=== PATIENT | female | born 2000 | race American Indian/Alaskan Native ===

== ENCOUNTER 2020-03-18 13:57 | Emergency (ER) | payer SELFPAY ==
[2020-03-18 14:10] VITALS: BP 124/77
--- NOTE | 2020-03-18 14:17 | Event Note ---
ED Screening Note Date of service: 03/18/20 Time: 14:13 ED Screening Note: 20 y/o black female comes in reporting that she fell from a [employer] and reports that she had LOC. When she woke she asked her friends to take her to the hospital. Patient comes in on the phone and refuses to left staff triage her got up and left the hospital. This initial assessment/diagnostic orders/clinical plan/treatment(s) is/are subject to change based on patients health status, clinical progression and re- assessment by fellow clinical providers in the ED. Further treatment and workup at subsequent clinical providers discretion. Patient/guardian urged not to elope from the ED as their condition may be serious if not clinically assessed and managed. Initial orders include:
== END 2020-03-18 14:10 | disposition left against medical advice (07) ==
LOC: ED 13:57
DX: R51.9 Headache, unspecified (principal); Z53.21 Procedure and treatment not carried out due to patient leaving prior to being seen by health care provider

== ENCOUNTER 2020-07-25 00:01 | Emergency (ER) | payer BC ==
--- NOTE | 2020-07-25 00:24 | Emergency Department Report ---
ED Headache HPI - General Stated Complaint: MIGRAINE Source: patient Exam Limitations: no limitations - History of Present Illness Initial Comments: Patient is a nulliparous 21-year-old female with a history of chronic migraine headache who presents to the ED with complaint of acute exacerbation of her chronic migraine headaches characterized by severe right retro-orbital and frontal headache for the last 3 days. Patient states that she has been taking tubw-fmz-fvdtxmc Excedrin migraine headache medications with no relief. Patient states that the pain is intermittent but persistent with photophobia and nausea. Patient states that the pain is typical of her chronic migraine headaches which usually resolves with Excedrin or cfmr-qqb-kaukuqs medications but this time did not. Patient denies vomiting, fever, chills, cough, nasal and sinus congestion, sore throat, dizziness, syncope, seizures, chest pain or shortness of breath, traumatic injury, vision changes, neck pain, facial numbness and tingling, numbness and tingling or weakness of upper and lower extremities bilaterally or traumatic injury. Timing/Duration: waxing and waning, other (3 DAYS) Quality: severe, pressure, sharp, throbbing Head Injury Location: frontal (right frontal and retroorbital) Recent Head Trauma: no recent headache/trauma, chronic headaches Modifying Factors: improves with: medication Associated Symptoms: denies symptoms, facial pain (right frontal retro-orbital area), sinus infection. denies: confusion, fatigue, fever/chills, flushing, nausea/vomiting, nasal congestion, nasal drainage, numbness in legs/feet, seizures, stiff neck, vision changes, weakness Allergies/Adverse Reactions: Allergies No Known Allergies Allergy (Verified 07/25/20 00:21) Home Medications: Ambulatory Orders Amoxicillin/Potassium Clav [Augmentin 875-125 Tablet] 1 each PO Q12H #20 tablet 07/25/20 Butalb/Acetamin/Caff 50-325-40 [Fioricet 50-325-40] 1 - 2 tab PO Q6HR PRN #15 tab 07/25/20 Ketorolac [Toradol] 10 mg PO Q8H PRN #20 tablet 07/25/20 Ondansetron [Zofran Odt] 4 mg PO Q6HR PRN #15 tab.rapdis 07/25/20 ED Review of Systems ROS: Stated complaint: MIGRAINE Other details as noted in HPI Constitutional: denies: chills, fever Eyes: denies: eye pain, eye discharge, vision change ENT: denies: ear pain, throat pain Respiratory: denies: cough, shortness of breath, wheezing Cardiovascular: denies: chest pain, palpitations Endocrine: no symptoms reported Gastrointestinal: denies: abdominal pain, nausea, diarrhea Genitourinary: denies: urgency, dysuria, discharge Musculoskeletal: denies: back pain, joint swelling, arthralgia Skin: denies: rash, lesions Neurological: headache. denies: weakness, paresthesias Psychiatric: denies: anxiety, depression Hematological/Lymphatic: denies: easy bleeding, easy bruising ED Past Medical Hx - Past Medical History Hx Headaches / Migraines: Yes Additional medical history: ADHD - Medications Home Medications: Home Medications Medication Instructions Recorded Confirmed Last Taken Type Amoxicillin/Potassium Clav 1 each PO Q12H #20 tablet 07/25/20 Unknown Rx [Augmentin 875-125 Tablet] Butalb/Acetamin/Caff 50-325-40 1 - 2 tab PO Q6HR PRN #15 tab 07/25/20 Unknown Rx [Fioricet 50-325-40] Ketorolac [Toradol] 10 mg PO Q8H PRN #20 tablet 07/25/20 Unknown Rx Ondansetron [Zofran Odt] 4 mg PO Q6HR PRN #15 tab.rapdis 07/25/20 Unknown Rx ED Physical Exam - General General appearance: alert, in no apparent distress - Head Head exam: Present: atraumatic, normocephalic, normal inspection - Eye Eye exam: Present: normal appearance, PERRL, EOMI Pupils: Present: normal accommodation - ENT ENT exam: Present: normal exam, normal orophraynx, mucous membranes moist, TM's normal bilaterally, normal external ear exam, other (Palpable right frontal tenderness) - Neck Neck exam: Present: normal inspection, full ROM - Respiratory Respiratory exam: Present: normal lung sounds bilaterally. Absent: respiratory distress, wheezes, rales, rhonchi, stridor, chest wall tenderness, accessory muscle use, prolonged expiratory - Cardiovascular Cardiovascular Exam: Present: regular rate, normal rhythm, normal heart sounds. Absent: systolic murmur, diastolic murmur, rubs, gallop - GI/Abdominal GI/Abdominal exam: Present: soft, normal bowel sounds. Absent: tenderness, guarding, rebound, hyperactive bowel sounds, hypoactive bowel sounds, organomegaly, mass - Extremities Exam Extremities exam: Present: normal inspection, full ROM, normal capillary refill - Back Exam Back exam: Present: normal inspection, full ROM. Absent: tenderness, CVA tenderness (R), CVA tenderness (L), muscle spasm, paraspinal tenderness, vertebral tenderness - Neurological Exam Neurological exam: Present: alert, oriented X3, CN II-XII intact, normal gait, reflexes normal - Psychiatric Psychiatric exam: Present: normal affect, normal mood - Skin Skin exam: Present: warm, dry, intact, normal color. Absent: rash ED Medical Decision Making - Medical Decision Making This is a nulliparous 21-year-old female with a history of chronic migraine headache who presents to the ED with complaint of acute exacerbation of her chronic migraine headaches characterized by severe right retro-orbital and frontal headache for the last 3 days. Patient states that she has been taking xgzd-teg-liatvuq Excedrin migraine headache medications with no relief. Patient states that the pain is intermittent but persistent with photophobia and nausea. Patient states that the pain is typical of her chronic migraine headaches which usually resolves with Excedrin or jazu-dbz-ejtwpsu medications but this time did not. In the ED, patient is alert and oriented x3 and is not in distress with normal vital signs. Patient states that at the moment the headache is resolved but was present prior to arrival in the ED and she decided come to the ED for evaluation. Based on the history and physical exam findings, the patient symptoms may be exacerbated by frontal sinusitis. Patient was therefore discharged home on pain medications and antibiotics for suspected frontal sinusitis. Patient is hemodynamically stable, not photophobic has not had any nausea or vomiting and states that her headaches are typical of chronic migraine headache presentations and not the worst headache of her life. Patient was therefore discharged home on medications and advised to follow-up with her primary care physician in 3 to 5 days for reevaluation. Patient was also advised to return to the ED immediately if symptoms get worse. - Differential Diagnosis Sinusitis; migraine headache; cluster headache; tension headache Critical care attestation.: If time is entered above; I have spent that time in minutes in the direct care of this critically ill patient, excluding procedure time. ED Disposition Clinical Impression: Acute non-recurrent frontal sinusitis, Sinus headache Migraine headache without aura Qualifiers: Status migrainosus presence: without status migrainosus Intractability: not intractable Qualified Code(s): G43.009 - Migraine without aura, not intractable, without status migrainosus Disposition: TO HOME OR SELFCARE Is pt being admited?: No Does the pt Need Aspirin: No Condition: Stable Instructions: Sinusitis, Adult, Jsvd-th-Tgsp, Sinus Headache, Jgte-vp-Pdtp, Migraine Headache, Svev-ak-Dhxk Additional Instructions: Take medication with food, drink plenty of fluids and follow-up with your primary care physician in 7 to 10 days for reevaluation. Return to the ED immediately if symptoms get worse. Prescriptions: Amoxicillin/Potassium Clav [Augmentin 875-125 Tablet] 1 each PO Q12H #20 tablet Butalb/Acetamin/Caff 50-325-40 [Fioricet 50-325-40] 1 - 2 tab PO Q6HR PRN #15 tab PRN Reason: Headache Ketorolac [Toradol] 10 mg PO Q8H PRN #20 tablet PRN Reason: Pain Ondansetron [Zofran Odt] 4 mg PO Q6HR PRN #15 tab.rapdis PRN Reason: Nausea Referrals: [facility] [Provider Group] - 7-10 days Time of Disposition: 01:03 Print Language: GABONESE
[2020-07-25 00:27] VITALS: BP 99/43
== END 2020-07-25 01:02 | disposition home or self-care (01) ==
LOC: ED 00:01
DX: J01.10 Acute frontal sinusitis, unspecified (principal); G43.909 Migraine, unspecified, not intractable, without status migrainosus; F90.9 Attention-deficit hyperactivity disorder, unspecified type; Z79.899 Other long term (current) drug therapy
CPT/HCPCS: 99281

== ENCOUNTER 2021-01-02 16:18 | Emergency (ER) | payer BC ==
[2021-01-02 17:14] VITALS: BP 124/88
--- NOTE | 2021-01-02 17:14 | Event Note ---
ED Screening Note Date of service: 01/02/21 Time: 17:12 ED Screening Note: 20-year-old female patient (, six and a half weeks gestation by dates) presents to the emergency department with complaints of abdominal pain and vaginal bleeding starting yesterday. States pain is localized to the right lower quadrant. Patient used three pads/tampons last night, none today. Patient is not currently under the care of an balance wheel screw hole tapper. She has not undergone an ultrasound during this . Also endorses decreased appetite and weight loss over the course of her . General: Awake, appropriately interactive. Anxious. Neck: Supple. Full range of motion intact. Cardiovascular: Normal peripheral perfusion. Pulmonary: No respiratory distress. Patient is speaking normally without use of accessory muscles. Skin: No apparent rashes or lesions. Neurological: No facial asymmetry. Speech is clear. Follows commands. Patient is alert and oriented. Musculoskeletal: Moves all four extremities spontaneously with normal range of motion. Psych: Cooperative. Anxious. I have greeted and performed a focused rapid initial assessment of this patient. A comprehensive ED assessment and evaluation of the patient, analysis of all test results, and completion of the medical decision-making process will be conducted by additional ED providers. This initial assessment/diagnostic orders/clinical plan/treatment(s) is/are subject to change based on patients health status, clinical progression and re-assessment. Further treatment and workup at subsequent clinical provider's discretion. Patient/guardian urged not to elope from the ED as their condition may be serious if not clinically assessed and managed.
[2021-01-02 18:49] LABS: Amorphous Crystals,Urine Few; Bilirubin,Urine NEG (Negative); Blood,Urine NEG (Negative); Color,Urine Yellow (Yellow); Mucus,Urine FEW /HPF; Protein,Urine <15 mg/dL mg/dL (Negative)
[2021-01-02 19:20] LABS: Alanine Aminotransferase 11 units/L (7-56); Albumin 4.5 g/dL (3.9-5); Blood Urea Nitrogen 8 mg/dL (7-17); Calcium 9.1 mg/dL (8.4-10.2); Hemolysis Index 12
[2021-01-02 19:22] LABS: Basophils # (Auto) 0.1 K/mm3 (0.0-0.1); Basophils % (Auto) 0.7 % (0.0-1.8); Eosinophils # (Auto) 0.1 K/mm3 (0.0-0.4); Eosinophils % (Auto) 0.7 % (0.0-4.3); Hematocrit 40.9 % (30.3-42.9); Hemoglobin 13.9 gm/dl (10.1-14.3); Lymphocytes # (Auto) 2.3 K/mm3 (1.2-5.4); Lymphocytes % (Auto) 21.2 % (13.4-35.0); Mean Corpuscular HGB Conc 34 % (30-34); Mean Corpuscular Volume 88 fl (79-97); Monocytes # (Auto) 0.5 K/mm3 (0.0-0.8); Monocytes % (Auto) 4.8 % (0.0-7.3); Platelet Count 272 K/mm3 (140-440); Red Blood Count 4.65 M/mm3 (3.65-5.03); Red Cell Distribution Width 12.5 % (13.2-15.2)
[2021-01-02 19:29] LABS: BUN/Creatinine Ratio 11
--- NOTE | 2021-01-02 21:28 | Emergency Department Report ---
ED Female HPI - General Chief complaint: Abdominal Pain Stated complaint: CHEST PAIN, HEADACHE, DIZZY SPELLS, BLEEDING Time Seen by Provider: 01/02/21 21:09 Source: patient Mode of arrival: Ambulatory Limitations: No Limitations - History of Present Illness Initial comments: 20-year-old female with a past medical history of ADHD, dyslexia, borderline personality disorder presents to the ER today with complaints of low abdominal pain and vaginal bleeding. Patient states that she took a home test yesterday and it was positive. She states her last menstrual cycle was November 16, 2020. She states that this was a surprise as is not unusual for her to have light periods. She states the reason she took a test was because her fried told her that her breast looked larger and so she took a test and it was positive. She states that around 5 AM this morning she started having vaginal bleeding to the point where she had to change about 2-3 pads. She states that currently the bleeding has since stopped. She did admit that last night she had sexual intercourse around 11 PM but she states that it was not rough. In addition to the bleeding she is also having lower abdominal cramping and clear discharge with a foul odor. She is G1, P0 Ab0. She reports no other symptoms at this time. MD Complaint: vaginal bleeding, other () -: Sudden, This morning - Related Data Previous Rx's Medication Instructions Recorded Last Taken Type Amoxicillin/Potassium Clav 1 each PO Q12H #20 tablet 07/25/20 Unknown Rx [Augmentin 875-125 Tablet] Butalb/Acetamin/Caff 50-325-40 1 - 2 tab PO Q6HR PRN #15 tab 07/25/20 Unknown Rx [Fioricet 50-325-40] Ketorolac [Toradol] 10 mg PO Q8H PRN #20 tablet 07/25/20 Unknown Rx Ondansetron [Zofran Odt] 4 mg PO Q6HR PRN #15 tab.rapdis 07/25/20 Unknown Rx metroNIDAZOLE [Flagyl] 500 mg PO Q12HR #14 tab 01/02/21 Unknown Rx Allergies Allergy/AdvReac Type Severity Reaction Status Date / Time No Known Allergies Allergy Verified 01/02/21 17:08 ED Review of Systems ROS: Stated complaint: CHEST PAIN, HEADACHE, DIZZY SPELLS, BLEEDING Other details as noted in HPI Comment: All other systems reviewed and negative Constitutional: denies: chills, fever ENT: denies: ear pain, throat pain Respiratory: denies: cough, shortness of breath, wheezing Cardiovascular: denies: chest pain, palpitations Gastrointestinal: abdominal pain Genitourinary: discharge, other (Abnormal bleeding). denies: urgency, dysuria, frequency, hematuria, abnormal menses, dyspareunia Musculoskeletal: denies: back pain, joint swelling, arthralgia, myalgia Skin: denies: rash, lesions, change in color, change in hair/nails, pruritus Neurological: denies: headache, weakness, numbness, paresthesias, confusion, abnormal gait, vertigo Psychiatric: denies: anxiety, depression, auditory hallucinations, visual hallucinations, homicidal thoughts, suicidal thoughts Hematological/Lymphatic: denies: easy bleeding, easy bruising ED Past Medical Hx - Past Medical History Hx Headaches / Migraines: Yes Hx Psychiatric Treatment: Yes (ADHD/DSYLEXIC/ BORDERLINE PERSONALITY/ SHIZCHOPHERNIA) Additional medical history: ADHD - Social History Smoking Status: Never Smoker Substance Use Type: None - Medications Home Medications: Home Medications Medication Instructions Recorded Confirmed Last Taken Type Amoxicillin/Potassium Clav 1 each PO Q12H #20 tablet 07/25/20 Unknown Rx [Augmentin 875-125 Tablet] Butalb/Acetamin/Caff 50-325-40 1 - 2 tab PO Q6HR PRN #15 tab 07/25/20 Unknown Rx [Fioricet 50-325-40] Ketorolac [Toradol] 10 mg PO Q8H PRN #20 tablet 07/25/20 Unknown Rx Ondansetron [Zofran Odt] 4 mg PO Q6HR PRN #15 tab.rapdis 07/25/20 Unknown Rx metroNIDAZOLE [Flagyl] 500 mg PO Q12HR #14 tab 01/02/21 Unknown Rx ED Physical Exam - General Limitations: No Limitations General appearance: alert, in no apparent distress - Head Head exam: Present: atraumatic, normocephalic, normal inspection - Eye Eye exam: Present: normal appearance, PERRL, EOMI Pupils: Present: normal accommodation - Respiratory Respiratory exam: Present: normal lung sounds bilaterally. Absent: respiratory distress, wheezes, rales, rhonchi - Cardiovascular Cardiovascular Exam: Present: regular rate, normal rhythm, normal heart sounds - GI/Abdominal GI/Abdominal exam: Present: soft, tenderness (Mild diffuse lower abdominal tenderness without guarding or rebound or rigidity). Absent: distended, guarding, rebound - External exam: Present: normal external exam, other (Shot Polisher present at bedside) Speculum exam: Present: vaginal discharge (Small amount of white thin discharge). Absent: cervical discharge, vaginal bleeding, foreign body, tissue, laceration Bi-manual exam: Present: adnexal tenderness (Mild left adnexal tenderness), other (Cervical os closed) - Neurological Exam Neurological exam: Present: alert, oriented X3, CN II-XII intact, normal gait ED Course Vital Signs 01/02/21 01/03/21 17:09 01:30 Temperature 98.5 F Pulse Rate 88 90 Respiratory 24 17 Rate Blood Pressure 124/88 [Right] O2 Sat by Pulse 100 99 Oximetry ED Medical Decision Making - Lab Data Result diagrams: 01/02/21 18:30 01/02/21 18:30 - Radiology Data Radiology results: report reviewed Patient: FANNY VARGAS MR#: [id number] : 2000 A cct:[id number] Age/Sex: 20 / F ADM Date: 01/02/21 Loc: ED Attending Dr: Ordering Physician: CATHY MURO Date of Service: 01/02/21 Procedure(s): US OB transvaginal Accession Number(s): [id number] cc: CATHY MURO ULTRASOUND OBSTETRIC INDICATION / CLINICAL INFORMATION: abd pain/vag bleeding/[id number]. Clinical Gestational Age (GA) in weeks, days: 6, 1 TECHNIQUE: Transvaginal. COMPARISON: None available. FINDINGS: GESTATIONAL SAC: Well-defined oval shape and intrauterine in location. Gestational sac measures 9.1 mm corresponding to a 5 week 5 day gestation. YOLK SAC: No significant abnormality. EMBRYO/FETUS: No pole is identified with this time. ADNEXA: No significant abnormality. FREE FLUID: None. ADDITIONAL FINDINGS: None. IMPRESSION: 1. Single, living intrauterine with estimated sonographic age of 5, 5 weeks, days. Yolk sac is seen. A pole was not identified. Signer Name: Farshad Flores MD Signed: 01/02/2021 10:28 PM Workstation Name: [id number] Transcribed By: SS Dictated By: Farshad Flores MD Electronically Authenticated By: Farshad Flores MD Signed Date/Time: 01/02/212227 DD/ 25 TD/TT: Critical care attestation.: If time is entered above; I have spent that time in minutes in the direct care of this critically ill patient, excluding procedure time. ED Disposition Clinical Impression: Threatened miscarriage in early , Bacterial vaginosis in Disposition: DC-01 TO HOME OR SELFCARE Is pt being admited?: No Does the pt Need Aspirin: No Condition: Stable Instructions: Bacterial Vaginosis, Fsqt-xx-Vlnc, Threatened Miscarriage, Guma-ug-Ccgx, Bacterial Vaginosis (ED), Abdominal Pain (ED) Additional Instructions: Take the flagyl as prescribed. You can take tylenol as needed for pain. I r ecommend no sex and or strenuous activity until follow-up with [facility]. Return to the ER if your symptoms changes or worsens in any way. Prescriptions: metroNIDAZOLE [Flagyl] 500 mg PO Q12HR #14 tab Referrals: PRIMARY CARE, [Primary Care Provider] - 3-5 Days [facility] [Provider Group] - 3-5 Days [facility] [Provider Group] - 3-5 Days Forms: STI Treatment and Prevention Time of Disposition: 23:10
[2021-01-02] MEDS ORDERED: LIDOCAINE-MPF (1%) 10 MG/1 ML VIAL 5 ML INFILTRATI ONE (22:26)
[2021-01-02] MEDS ORDERED: AZITHROMYCIN 250 MG TAB PO ONE (22:26)
--- NOTE | 2021-01-02 22:32 | Ultrasound Report ---
ULTRASOUND OBSTETRIC INDICATION / CLINICAL INFORMATION: abd pain/vag bleeding/[id number]. Clinical Gestational Age (GA) in weeks, days: 6, 1 TECHNIQUE: Transvaginal. COMPARISON: None available. FINDINGS: GESTATIONAL SAC: Well-defined oval shape and intrauterine in location. Gestational sac measures 9.1 m m corresponding to a 5 week 5 day gestation. YOLK SAC: No significant abnormality. EMBRYO/FETUS: No pole is identified with this time. ADNEXA: No significant abnormality. FREE FLUID: None. ADDITIONAL FINDINGS: None. IMPRESSION: 1. Single, living intrauterine with estimated sonographic age of 5, 5 weeks, days. Yolk sa c is seen. A pole was not identified. Signer Name: Farshad Flores MD Signed: 01/02/2021 10:28 PM Workstation Name: [id number]
[2021-01-03] MEDS ORDERED: LIDOCAINE-MPF (1%) 10 MG/1 ML VIAL 5 ML ONE (00:41)
[2021-01-03] MEDS ORDERED: AZITHROMYCIN 250 MG TAB ONE (00:41)
== END 2021-01-03 01:30 | disposition home or self-care (01) ==
LOC: ED 16:18
DX: O20.0 Threatened abortion (principal); O23.591 Infection of other part of genital tract in pregnancy, first trimester; B96.89 Other specified bacterial agents as the cause of diseases classified elsewhere; G43.909 Migraine, unspecified, not intractable, without status migrainosus; Z3A.01 Less than 8 weeks gestation of pregnancy; Z79.2 Long term (current) use of antibiotics; Z79.899 Other long term (current) drug therapy
CPT/HCPCS: 36415; 76817; 80053; 81001; 83735; 84702; 85025; 86850; 86900; 86901; 87210; 87591; 96372; 99284; J0696; J2790

== ENCOUNTER 2021-05-13 17:14 | Outpatient (CLI) | payer OTHER ==
[2021-05-13 18:07] VITALS: BP 97/59
[2021-05-13] MEDS ORDERED: LACTATED RINGERS 1,000 ML IV ONE ×2 (18:41→21:12)
[2021-05-13 19:02] LABS: Bilirubin,Urine NEG (Negative); Blood,Urine NEG (Negative); Color,Urine Yellow (Yellow); Mucus,Urine 3+ /HPF; Protein,Urine <15 mg/dL mg/dL (Negative)
--- NOTE | 2021-05-13 20:49 | Ultrasound Report ---
OB Ultrasound HISTORY: Complete OB sonogram. TECHNIQUE: Grayscale and color imaging performed. COMPARISON: OB ultrasound from 01/02/2021 FINDINGS: Single viable intrauterine gestation with cephalic presentation. LIZZY is 7 cm. Placenta is p osterior. Heart rate 166 bpm. Cervical length 3.1 cm. Estimated gestational age by ultrasound is 22 w eeks and 5 days compared to clinically 24 weeks and 0 days. Estimated weight is 529 g and delivery da te is 09/11/2021. IMPRESSION: Single viable intrauterine gestation as above. Signer Name: Orlando Norwood MD Signed: 05/13/2021 8:45 PM Workstation Name: [id number]
== END 2021-05-13 21:25 | disposition left against medical advice (07) ==
LOC: TRG 17:14 → APU 17:23 → TRG 21:25
PROVIDERS: ATTEND Obstetrics & Gynecology
DX: O46.92 Antepartum hemorrhage, unspecified, second trimester (principal); O26.892 Other specified pregnancy related conditions, second trimester; R42 Dizziness and giddiness; R10.30 Lower abdominal pain, unspecified; M54.9 Dorsalgia, unspecified; Z3A.24 24 weeks gestation of pregnancy
CPT/HCPCS: 59025; 76816; 81001; 96360; J7120

== ENCOUNTER 2021-06-14 13:19 | Outpatient (CLI) | payer OTHER ==
[2021-06-14] MEDS ORDERED: LACTATED RINGERS 1,000 ML IV ONE (13:33)
[2021-06-14 13:52] VITALS: BP 96/51
[2021-06-14 14:37] LABS: Bacteria,Urine 1+ /HPF (Negative); Bilirubin,Urine NEG (Negative); Blood,Urine NEG (Negative); Color,Urine Yellow (Yellow); Mucus,Urine 3+ /HPF; Urobilinogen,Urine < 2.0 mg/dL (<2.0)
--- NOTE | 2021-06-14 17:10 | Ultrasound Report ---
ULTRASOUND OBSTETRIC LIMITED ULTRASOUND BIOPHYSICAL PROFILE INDICATION / CLINICAL INFORMATION: c/o decreased fm. COMPARISON: None available. FINDINGS: BREATHING MOVEMENT = 2 GROSS BODY MOVEMENT = 2 TONE = 2 QUALITATIVE AMNIOTIC FLUID VOLUME = 2 TOTAL BIOPHYSICAL SCORE = 8/8 HEART RATE (beats per minute): 148 AMNIOTIC FLUID INDEX (cm) = 8.4 (normal = 7-24 cm) PRESENTATION: Cephalic. ADDITIONAL FINDINGS: None. IMPRESSION: 1. Biophysical Score = 8/8 Signer Name: Chris Bennett MD Signed: 06/14/2021 5:05 PM Workstation Name: [id number]
--- NOTE | 2021-06-14 17:55 | Ultrasound Report ---
ULTRASOUND OBSTETRIC LIMITED ULTRASOUND BIOPHYSICAL PROFILE INDICATION / CLINICAL INFORMATION: c/o decreased fm. COMPARISON: None available. FINDINGS: BREATHING MOVEMENT = 2 GROSS BODY MOVEMENT = 2 TONE = 2 QUALITATIVE AMNIOTIC FLUID VOLUME = 2 TOTAL BIOPHYSICAL SCORE = 8/8 HEART RATE (beats per minute): 148 AMNIOTIC FLUID INDEX (cm) = 8.4 (normal = 7-24 cm) PRESENTATION: Cephalic. ADDITIONAL FINDINGS: None. IMPRESSION: 1. Biophysical Score = 8/8 Signer Name: Chris Bennett MD Signed: 06/14/2021 5:51 PM Workstation Name: [id number]
== END 2021-06-14 15:31 | disposition home or self-care (01) ==
LOC: TRG 13:19 → APU 13:20 → TRG 15:31
PROVIDERS: ATTEND Obstetrics & Gynecology
DX: O36.8130 Decreased fetal movements, third trimester, not applicable or unspecified (principal); Z3A.28 28 weeks gestation of pregnancy
CPT/HCPCS: 76815; 76819; 81001; 87086

== ENCOUNTER 2021-07-18 14:56 | Outpatient (CLI) | payer OTHER ==
[2021-07-18 15:31] VITALS: BP 97/53
[2021-07-18] MEDS ORDERED: LACTATED RINGERS 1,000 ML IV ONE (15:32)
[2021-07-18 16:03] LABS: Bilirubin,Urine NEG (Negative); Blood,Urine NEG (Negative); Color,Urine Yellow (Yellow); Mucus,Urine FEW /HPF; Protein,Urine <15 mg/dL mg/dL (Negative); RBC,Urine < 1.0 /HPF (0.0-6.0); WBC,Urine < 1.0 /HPF (0.0-6.0)
== END 2021-07-18 16:22 | disposition home or self-care (01) ==
LOC: TRG 14:56 → APU 14:58 → TRG 16:22
PROVIDERS: ATTEND Obstetrics & Gynecology
DX: O26.893 Other specified pregnancy related conditions, third trimester (principal); R07.9 Chest pain, unspecified; R06.02 Shortness of breath; Z3A.33 33 weeks gestation of pregnancy
CPT/HCPCS: 59025; 81001

== ENCOUNTER 2021-08-09 00:39 | Outpatient (CLI) | payer OTHER ==
[2021-08-09] MEDS ORDERED: LACTATED RINGERS 500 ML IV ONE (00:57)
[2021-08-09 01:14] VITALS: BP 106/83
== END 2021-08-09 01:43 | disposition home or self-care (01) ==
LOC: TRG 00:39 → APU 00:47 → TRG 01:43
PROVIDERS: ATTEND Obstetrics & Gynecology Gynecology
DX: O46.93 Antepartum hemorrhage, unspecified, third trimester (principal); Z3A.36 36 weeks gestation of pregnancy
CPT/HCPCS: 59025